=== PATIENT | male | born 1990 | race Two or more races ===

== ENCOUNTER 2021-08-02 10:43 | Emergency (ER) | payer OTHER ==
[~2021-08-02] VITALS: Ht 165.1 cm; Wt 79.5 kg
[2021-08-02 10:50] VITALS: BP 156/87
[2021-08-02] MEDS ORDERED: HYDROcodone/APAP 5/325MG 1 TAB TABLET PO ONE (11:15)
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
== END 2021-08-02 12:05 | disposition home or self-care (01) ==
LOC: ER 10:43
DX: S09.90XA Unspecified injury of head, initial encounter (principal); M25.562 Pain in left knee; R42 Dizziness and giddiness; M54.2 Cervicalgia; Y04.0XXA Assault by unarmed brawl or fight, initial encounter; Y93.89 Activity, other specified; Y92.89 Other specified places as the place of occurrence of the external cause; Y99.8 Other external cause status
CPT/HCPCS: 70450; 72125; 73564; 99284